=== PATIENT | male | born 1975 | race Caucasian/White ===

== ENCOUNTER 2022-09-04 04:12 | Emergency (ER) | payer MEDICAID ==
[~2022-09-04] VITALS: Ht 185.4 cm; Wt 113.4 kg
[2022-09-04 04:13] VITALS: BP 152/83
--- NOTE | 2022-09-04 04:20 | NUR ---
RECEIVED 47 YRS MALE CAME FROM C/O ANXIETY. "I RELAPSED ON METH"
== END 2022-09-04 05:17 | disposition home or self-care (01) ==
LOC: ER 04:18
DX: F19.10 Other psychoactive substance abuse, uncomplicated (principal)

== ENCOUNTER 2023-06-27 07:35 | Inpatient (IN) | payer MEDICAID ==
[~2023-06-27] VITALS: Ht 185.4 cm; Wt 98.9 kg
[2023-06-27 08:30] LABS: BASOPHILS % (AUTO) 0.2 % (0.0-2.0); EOSINOPHILS % (AUTO) 0.2 % (0.0-6.0); HEMATOCRIT 40 % (39-51); HEMOGLOBIN 13.9 g/dL (13.5-17.5); LYMPHOCYTES % (AUTO) 10.7 % (20.0-44.0); MEAN CORPUSCULAR HEMOGLOBIN 31 PG (26.0-33.0); MEAN CORPUSCULAR HGB CONC 34 g/dl (31.0-36.0); MEAN CORPUSCULAR VOLUME 90 fL (80-96); MONOCYTES # (AUTO) 0.6 K/uL (0.1-1.30); MONOCYTES % (AUTO) 6.6 % (2.0-12.0); NEUTROPHILS # (AUTO) 7.6 K/uL (1.8-8.9); NEUTROPHILS % (AUTO) 82.3 % (43.0-81.0); PLATELET COUNT (AUTO) 345 K/uL (150-450); RED CELL DISTRIBUTION WIDTH 13.3 % (11.5-15.0); WHITE BLOOD COUNT (AUTO) 9.3 K/uL (4.3-11.0)
[2023-06-27] MEDS ORDERED: SILD100T PO (08:38)
[2023-06-27] MEDS ORDERED: TERB250T52 PO (08:38)
[2023-06-27] MEDS ORDERED: TEST200V3 IM (08:38)
[2023-06-27] MEDS ORDERED: TRAZ150T75 PO (08:38)
[2023-06-27] MEDS ORDERED: DOLU1TAB2 PO (08:38)
[2023-06-27] MEDS ORDERED: TAMS-12 PO (08:38)
[2023-06-27] MEDS ORDERED: FLUO60SO3 TP (08:38)
[2023-06-27 08:59] LABS: CALCIUM, SERUM 8.9 mg/dL (8.5-10.1); CARBON DIOXIDE 24 mmol/L (21-32); CHLORIDE 97 mmol/L (98-107); CREATININE 0.9 mg/dL (0.6-1.3); GLUCOSE 119 mg/dL (74-106); POTASSIUM 3.4 mmol/L (3.5-5.1); SODIUM SERUM 130 mmol/L (136-145); UREA NITROGEN, BLOOD 12 mg/dL (7-18)
[2023-06-27 09:07] LABS: ALANINE AMINOTRANSFERASE 43 U/L (12-78); ALBUMIN 3.4 g/dL (3.4-5.0); ALCOHOL, BLOOD < 3 mg/dL (0-10); ALKALINE PHOSPHATASE 62 U/L (46-116); ASPARTATE AMINOTRANSFERASE 31 U/L (15-37); BILIRUBIN,TOTAL 0.3 mg/dL (0.2-1.0); NT-PRO BNP 23 pg/mL (0-125); TOTAL PROTEIN, SERUM 7.3 g/dL (6.4-8.2)
[2023-06-27 09:25] LABS: BARBITURATE, URINE NEGATIVE (NEGATIVE); BENZODIAZEPINE, URINE NEGATIVE (NEGATIVE); CANNABINOID, URINE NEGATIVE (NEGATIVE); COCCAINE, URINE NEGATIVE (NEGATIVE); OPIATE, URINE NEGATIVE (NEGATIVE); PHENCYCLIDINE SCREEN,URINE NEGATIVE (NEGATIVE)
[2023-06-27 09:30] LABS: AMPHETAMINE, URINE POSITIVE (NEGATIVE)
[2023-06-27] MEDS ORDERED: IOHEXOL-350 100 ML VIAL IV ONE ×2 (10:10→12:24)
[2023-06-27] MEDS ORDERED: IV NS 0.9% 250 ML IV ONE ×2 (10:11→12:25)
[2023-06-27] MEDS ORDERED: ONDANSETRON 4 MG TAB.RAPDIS ONE (11:41)
[2023-06-27] MEDS ORDERED: ONDANSETRON 4 MG TAB.RAPDIS PO ONE (12:00)
[2023-06-27] MEDS ORDERED: CT SWABBABLE VALVE TRANS SET 1 EA INFUS.SET MC ONE (12:25)
[2023-06-27] MEDS ORDERED: MAG HYDROX/AL HYDROX/SIMETH 30 ML UDC PO PRN (16:00)
[2023-06-27] MEDS ORDERED: Z GUARD REMEDY 4 OZ OINT TP PRN (16:00)
[2023-06-27] MEDS ORDERED: ONDANSETRON HCL/PF 4 MG/2 ML VIAL IVP PRN (16:00)
[2023-06-27] MEDS ORDERED: MAGNESIUM HYDROXIDE 30 ML UDC PO PRN (16:00)
[2023-06-27] MEDS ORDERED: Medication Not On Formulary EA (Testosterone Cypionate 200 MG) XX SCH (16:00)
[2023-06-27] MEDS ORDERED: FLUOCINONIDE 0.05% SOLN 60 ML BOTTLE TP PRN (16:00)
[2023-06-27] MEDS ORDERED: ACETAMINOPHEN 325 MG TABLET PO PRN (16:00)
[2023-06-27] MEDS: ENOXAPARIN SODIUM 100 MG/ML DISP.SYRIN SQ SCH (16:30)
[2023-06-27] MEDS ORDERED: ENOXAPARIN SODIUM 100 MG/ML DISP.SYRIN SQ ONE (18:25)
[2023-06-27] MEDS: TRAZODONE 50 MG TABLET PO SCH (22:00)
[2023-06-27] MEDS ORDERED: TRAZODONE 50 MG TABLET ONE (23:07)
[2023-06-28] MEDS: ENOXAPARIN SODIUM 100 MG/ML DISP.SYRIN SQ SCH (04:30)
[2023-06-28] MEDS ORDERED: ENOXAPARIN SODIUM 100 MG/ML DISP.SYRIN SQ ONE (05:47)
[2023-06-28 07:19] LABS: BASOPHILS % (AUTO) 0.3 % (0.0-2.0); EOSINOPHILS # (AUTO) 0.2 K/uL (0.0-0.7); EOSINOPHILS % (AUTO) 2.9 % (0.0-6.0); HEMATOCRIT 41 % (39-51); LYMPHOCYTES % (AUTO) 27.5 % (20.0-44.0); MEAN CORPUSCULAR HEMOGLOBIN 31 PG (26.0-33.0); MEAN CORPUSCULAR HGB CONC 34 g/dl (31.0-36.0); MEAN CORPUSCULAR VOLUME 91 fL (80-96); MONOCYTES # (AUTO) 0.6 K/uL (0.1-1.30); MONOCYTES % (AUTO) 7.9 % (2.0-12.0); NEUTROPHILS # (AUTO) 4.5 K/uL (1.8-8.9); NEUTROPHILS % (AUTO) 61.4 % (43.0-81.0); PLATELET COUNT (AUTO) 323 K/uL (150-450); RED BLOOD CELL COUNT(AUTO) 4.49 MIL/uL (4.5-6.0); RED CELL DISTRIBUTION WIDTH 13.4 % (11.5-15.0); WHITE BLOOD COUNT (AUTO) 7.4 K/uL (4.3-11.0)
[2023-06-28 08:20] VITALS: BP 130/77; TEMP 97.7; O2SAT 96
[2023-06-28 08:43] LABS: ALBUMIN 3.1 g/dL (3.4-5.0); BILIRUBIN,TOTAL 0.3 mg/dL (0.2-1.0); CALCIUM, SERUM 8.9 mg/dL (8.5-10.1); MAGNESIUM 2.5 mg/dL (1.8-2.4); PHOSPHORUS 3.5 mg/dL (2.5-4.9); POTASSIUM 4.2 mmol/L (3.5-5.1)
[2023-06-28] MEDS: TAMSULOSIN 0.4 MG CAP.SR.24H PO SCH (08:46)
[2023-06-28] MEDS: TERBINAFINE HCL 250 MG TABLET PO SCH (08:46)
[2023-06-28 09:00] VITALS: BP 130/77; TEMP 97.7; O2SAT 96
[2023-06-28 12:00] VITALS: BP 121/73; TEMP 98.5; O2SAT 94
[2023-06-28 14:03] LABS: EOSINOPHIL,URINE None Seen
[2023-06-28 14:05] LABS: APPEARANCE,URINE SLIGHTLY CLOUDY (CLEAR); BILIRUBIN,URINE NEGATIVE (NEGATIVE); BLOOD, URINE NEGATIVE Ery/uL (NEGATIVE); COLOR,URINE YELLOW (YELLOW); KETONES,URINE NEGATIVE (NEGATIVE); LEUKOCYTE ESTERASE ,URINE NEGATIVE (NEGATIVE); NITRITE, URINE NEGATIVE (NEGATIVE); PH,URINE 6.5 (5.0-8.0); PROTEIN,URINE NEGATIVE (NEGATIVE); UGLUCOSE NEGATIVE (NEGATIVE); UROBILINOGEN,URINE 0.2 EU/dL (0.2)
[2023-06-28 14:07] LABS: ADD URINE CULTURE NO; BACTERIA,URINE None seen /HPF (None Seen); RBC,URINE NONE SEEN /HPF (0-2); SQUAMOUS EPITHELIAL CELL,UR None Seen /HPF (None Seen); WBC,URINE NONE SEEN /HPF (0-3)
[2023-06-28 16:00] VITALS: BP 139/85; TEMP 97.8; O2SAT 96
[2023-06-28] MEDS: RIVAROXABAN 15 MG TABLET PO SCH (16:48)
[2023-06-28 20:00] VITALS: BP 144/75; TEMP 97.9; O2SAT 99
[2023-06-28] MEDS: TRAZODONE 50 MG TABLET PO SCH (21:06)
[2023-06-29] VITALS: BP 140/73; TEMP 97.7; O2SAT 95
[2023-06-29 04:00] VITALS: BP 122/71; TEMP 97.6; O2SAT 98
[2023-06-29 07:30] VITALS: BP 113/69; TEMP 98.2; O2SAT 98
[2023-06-29] MEDS: TAMSULOSIN 0.4 MG CAP.SR.24H PO SCH (08:14)
[2023-06-29] MEDS: TERBINAFINE HCL 250 MG TABLET PO SCH (08:14)
[2023-06-29] MEDS: RIVAROXABAN 15 MG TABLET PO SCH (08:16)
== END 2023-06-29 11:00 | disposition home or self-care (01) | DRG 134 ==
LOC: ER 07:35 → TRANSITION 22:47 → TELE 06-28 05:50
PROVIDERS: ADMIT Internal Medicine; ATTEND Internal Medicine
DX: I26.99 Other pulmonary embolism without acute cor pulmonale (principal); E87.1 Hypo-osmolality and hyponatremia; E86.9 Volume depletion, unspecified; E87.6 Hypokalemia; Z79.899 Other long term (current) drug therapy; F15.10 Other stimulant abuse, uncomplicated; I51.7 Cardiomegaly; L30.9 Dermatitis, unspecified; Z79.01 Long term (current) use of anticoagulants
CPT/HCPCS: 36415; 71045-TC; 80053-TC; 81001; 82570-TC; 83735-TC; 83880; 83935-TC; 84100-TC; 84300-TC; 84484-TC; 85025-TC; 93307-TC; 93970-TC; G0378; G0480; J1650; J7050; Q0162; Q9967